=== PATIENT | male | born 1945 ===

== ENCOUNTER 2017-07-30 06:22 | Day surgery (SDC) | payer OTHER ==
[~2017-07-30 06:22] MED LIST: LOTENSIN20 MG PO; ZOCOR40 MG PO; [UNRECOGNIZED DRUG - OTHER] PO
== END 2017-07-30 11:35 | disposition home or self-care (01) ==
LOC: AMB-ENDOS 06:22
DX: K57.30 Diverticulosis of large intestine without perforation or abscess without bleeding (principal); K64.1 Second degree hemorrhoids; Z85.038 Personal history of other malignant neoplasm of large intestine

== ENCOUNTER → 2018-08-05 | Day surgery (SDC) | payer OTHER | END | disposition home or self-care (01) | LOC: ADM 07-26 13:15 → AMB-ENDOS 05:12 | DX: K64.1 Second degree hemorrhoids (principal) ==